=== PATIENT | female | born 1995 ===

== ENCOUNTER 2018-05-19 14:21 | Inpatient (IN) | payer MEDICAID, OTHER, SELFPAY ==
[~2018-05-19 14:21] MED LIST: Bupivacaine 0.25% HCL 30 ML VIAL ONE; Terbutaline Sulfate 1 MG/ML VIAL ONE
[2018-05-19] MEDS ORDERED: Lidocaine 1% (PF) 30 ML VIAL SC PRN (16:13)
[2018-05-19] MEDS ORDERED: Butorphanol Tartrate 1 MG/ML VIAL SLOW IVP PRN (16:13)
[2018-05-19] MEDS ORDERED: Promethazine HCl 25 MG/ML VIAL IM PRN ×2 (16:13→23:08)
[2018-05-19] MEDS ORDERED: HYDROcodone/Acetaminophen 5/325 mg Tablet PO PRN ×2 (16:13)
[2018-05-19] MEDS ORDERED: NS / Oxytocin 40 units/1000ml 1,000 ML IV PRN (16:13)
[2018-05-19] MEDS ORDERED: Ibuprofen 800 MG TAB PO PRN (16:13)
--- NOTE | 2018-05-19 16:26 | PDOC.FPROB ---
FMR OB H&P: HPI - History of Present Illness Chief Complaint: contractions and possible ROM Indentification: History of Present Illness: The patient is a 26YO @ 40.1 weeks by an 8.4 week sono who presented to L& D with a CC of contractions that began around 0700 this morning. The patient reports that she was laying in bed and started to feel contractions in her abdomen. She stated that the contractions becam more frequent to the point where they were 4-6 minutes apart so she decided to come to L&D for evaluation. She also noted some leakage of clear fluid and endorsed some back pain and urinary frequency. The patient endorses some associated fever as well but never took her temperature at home. She denies any vaginal bleeding, any large gush of fluid, or discharge. Also reports feeling regular movement. Lastly, the patient reports developing pain in her low back since laying down in the bed on L&D as well as a headache. She denies any N/V, blurry vision, or lower extremity swelling. Primary Care Physician: PNC FMR OB H&P: Current - Care : 1 Para: 0 Gestational age: 40.1 Due date: 05/18/18 Dating Criteria: 8.4 week sono Course/Complications: none - OB Labs Blood type: B RH: negative Antibody Screen: negative HIV: negative RPR: negative HepBsAg: negative Rubella: immune Gonorrhea: negative Chlamydia: negative Pap Smear: NILM on 10/16/17 1 hour gtt: 108 GBS: negative H&H: 12.5/35.9 on 02/22/18 Platelets: 236 on 02/22/18 - First Trimester Ultrasound First trimester: WNLs - Anatomy Survey Anatomy survey: Normal anatomy. Viable female fetus. EFW 369g. FMR OB H&P: History - Past Medical History PMH: none - OB History OB History: h/o chlamydia infection s/p azithromycin treated in October. Test of cure done in November and was negative. - Surgical History Sx History: none - Social History Social History: No EtOH, drug, or tobacco use. - Family History Family History: None FMR OB H&P: Medications - Current Home Medications: Medication Instructions Recorded Confirmed Type Pnv No.95/Ferrous Fum/Folic AC 1 tab PO DAILY 05/19/18 05/19/18 History [ Multivitamin Tablet] Allergies/Adverse Reactions: Allergies Allergy/AdvReac Type Severity Reaction Status Date / Time No Known Allergies Allergy Verified 05/19/18 16:32 FMR OB H&P: ROS - Review of Systems General: reports: fever/chills Eyes: denies: vision changes, double vision Cardiovascular: denies: chest pain, edema Respiratory: denies: shortness of breath Gastrointestinal: reports: abdominal pain. denies: nausea, vomiting Genitourinary (Female): reports: other (urinary frequency). denies: dysuria, vaginal pain, vaginal bleeding Musculoskeletal: reports: pain (in low back) FMR OB H&P: Vital Signs - Maternal Vital signs: BP: 105/72 HR: 86 temp: 98.7F - Heart Tones Baseline: 130 Variability: moderate Acceleration: present Deceleration: absent Category: category 1 [place] contractions every: 1-2 minutes FMR OB H&P: Physical Exam - Physical Exam General: NAD, awake, alert and oriented HEENT: normocephalic and atraumatic, MMM, grossly normal vision, grossly normal hearing Neck: supple, FROM Heart: RRR, normal S1/S2, no edema General: CTAB, no respiratory distress, good air movement, no rales/rhonchi, no wheezing Abdomen: gravid Musculoskeletal: FROM in all four extremities Neurological: cranial nerves II through XII intact, no focal deficit Skin: no rash, good tugor, capillary refill <2 seconds Lymphatic: no unusual bruising or bleeding, no purpura Psychiatric: intact recent and remote memory, good judgement and insight, normal mood and affect - Pelvic Exam Vulva: normal hair distribution, appropriate jean marie stage, no masses, no lesions Deviation from normal: thin white mucous-like discharge w/ pooling of clear vaginal fluid seen Cervix: no masses, no lesions Deviation from normal: scant amount of blood noted 2/2 trauma from speculum exam SVE: 1.5/80/-1 Fitzpatrick score: 9 FMR OB H&P: Results - Labs Lab results: Laboratory Tests 05/19/18 16:40 Urine Protein 300 H Urine Ketones 80 H Urine Blood Small H Urine Nitrite Negative Urine Bilirubin Negative Ur Leukocyte Esterase Trace H Urine RBC 21-50 H Urine WBC 0-3 Ur Squamous Epith Cells 11-20 H Urine Bacteria Rare-Few Other labs: Laboratory Tests 05/19/18 16:54 Amnio Swab Test RUPTURE DETECTED H FMR OB H&P: A/P - Problem List (1) First Current Visit: Yes Status: Acute Code(s): Z34.00 - ENCNTR FOR SUPRVSN OF NORMAL FIRST , UNSP TRIMESTER (2) History of maternal Chlamydia infection, currently in third trimester Current Visit: Yes Status: Acute Code(s): O09.293 - SUPRVSN OF PREG W POOR REPRODCTV OR OBSTET HX, THIRD TRI (3) Spontaneous rupture of amniotic membranes Current Visit: Yes Status: Acute Code(s): LLG5618 - Disposition: 26YO @ 40.1 weeks by 8.4 week sono who presented to L&D complaining of contractions who was found to have SROM at home via amnisure and sterile speculum exam. SROM: - Patient presented complaining of leaking of clear fluid that began early this morning around 0700. - Amnisure + & pooling noted on sterile speculum exam. - VP3 pending to r/o infection as potential source of rupture. - Estimated time since rupture ~10-11 hours. - Will therefore proceed with induction of labor as described below. term sIUP @ 40.1 weeks by 8.4 week sono: - Uncomplicated course. - SVE @ 15:20 significant for 1.5/80/-1. - Fitzpatrick score of 9 based on check and cervix noted to be midposition & soft. - Vertex position confirmed via sono. Category 1 tracing w/ baseline in 130s and moderate variability w/ accels noted on continuous monitoring. - Will start IVFs w/ LR @ 125mL/hr and start on pitocin for IOL since patient was also noted to be divina q1-2 minutes on continuous monitoring. - Will perform a repeat cervical check in ~4 hours. - GBS negative, no need for intrapartum abx. Proteinuria: - Protein level of 300 noted on cath UA obtained on presentation. BPs have been WNLs since presentation. - Will start on IVFs. No need for further labs at this point. Will continue to monitor BPs closely. h/o chlamydia in 1st trimester of : - Aware, s/p tx with azithromycin with negative confirmatory test 1 month later. Discussion: Date/Time: 05/19/18 6270 This H&P was discussed with Dr. Green and Dr. Saavedra who agree with the above documentation and plan. FACULTY: I have seen and examined the patient. Suspected SROM clinically and pos ...GBS neg. HX treated chlamydia this with neg SAMANTHA
--- NOTE | 2018-05-19 16:27 | PDOC.EVN ---
Event Note - Event Note Event Note: OBGYN Faculty: Snehal*Josue @ 6340 Aware of patient arrival I was first called at 1515 while I was in the ED with another patient. RN Report given to me 10 minutes ago In brief, this is a clinic patient who is a 23 yo G1 at 40 weeks 1 day with possible LOF. Per RN... with possible foul odor dsch vaginally. Also with urgency and dysuria. Suspicious for LOF vs vaginitis. CX ...possible forebag Residents are on the way to assess. She is afebrile with TMax 99.2. I have recommended: SSE Amnisure Needs VP3 Cath UA for dysuria and urgency admit for early labor as regular contractions
[2018-05-19 16:31] VITALS: BMI 28.7
[2018-05-19 16:57] LABS: Bilirubin Negative (Negative); Blood, Urine Small (Negative); Clarity CLEAR (Clear); Glucose, Urine (Dipstick) Negative (Negative); Leukocyte Trace (Negative); Nitrite Negative (Negative); Protein, Urine (Dipstick) 300 mg/dL (Neg-Trace); Specific Gravity, Urine 1.021 (1.002-1.036)
[2018-05-19] MEDS ORDERED: Ondansetron PF 4 MG/2 ML Vial IVP PRN ×2 (16:58→23:08)
[2018-05-19 17:00] LABS: RBC/HPF 21-50 HPF (0-3); WBC/HPF 0-3 HPF (0-3)
[2018-05-19 17:01] LABS: Pathc Cast-AUWi Flag 5.23 (0-2.49)
[2018-05-19 17:11] LABS: Bacteria/HPF Rare-Few HPF (None Seen); Hyaline Casts/LPF NONE SEEN LPF (0-3 Hyaline); Manual Microscopic Reviewed? No Path Casts Seen; Renal Epithelial None Seen HPF (0-3); Transitional Epithelial NONE SEEN HPF (0-3)
[2018-05-19 17:12] LABS: Amnisure Test RUPTURE DETECTED (No Rupture)
[2018-05-19 17:13] LABS: Amnisure Internal Control QC ACCEPTABLE (ACCEPTABLE)
[2018-05-19] MEDS: Lactated Ringer's 1,000 ML IV SCH ×3 (17:28→22:45)
--- NOTE | 2018-05-19 17:31 | PDOC.EVN ---
Event Note - Event Note Event Note: Amnisure positive
[2018-05-19] MEDS: NS w/ Oxytocin 10 units 500 ML IV SCH (18:10)
[2018-05-19 19:13] LABS: Hemoglobin 13.9 g/dL (12.0-16.0); Mean Corpuscular HGB CONC 34.1 g/dL (32.0-36.0); Mean Corpuscular Hemoglobin 30.6 pg (27.0-31.0); Mean Corpuscular Volume 89.9 fL (78.0-98.0); Mean Platelet Volume 7.2 fL (7.4-10.4); Platelet Count 258 thou/uL (130-400); RBC Distribution Width 11.8 % (11.5-14.5); Red Blood Cell (RBC) Count 4.53 mill/uL (4.20-5.40); White Blood Cell (WBC) Count 12.4 thou/uL (4.8-10.8)
[2018-05-19] MEDS ORDERED: Acetaminophen 325 MG TAB PO PRN ×2 (19:14→23:08)
[2018-05-19 19:50] LABS: Syphilis Antibody Nonreactive (Nonreactive); Syphilis Antibody Index 0.03 S/CO (<1.00 Non-Reactive)
[2018-05-19 19:54] LABS: HBSAg Index 0.21 S/CO (0-0.99); HIV (1/2) Antibody/Antigen Non-Reactive (NonReactive); HIV 1/2 INDEX 0.09 S/CO (<1.00); Hep B Surf Ag Non-Reactive S/CO (NonReactive)
[2018-05-19] MEDS: Misoprostol 100 MCG TAB VAG SCH ×2 (20:41→23:09)
--- NOTE | 2018-05-19 21:16 | PDOC.LDPN ---
Labor & Delivery Progress Note - Subjective Subjective: painful contractions, loss of fluid - Objective Vital signs reviewed and normal: yes General: resting Dilation: 4 Effacement: 75% Station: -1 FHT: category 2 (130/mod/+accel/variable decel) [place] contractions every: 2-4 AROM: clear fluid Plan: continue plan of care, pitocin for augmentation -: 26YO @ 40.1 weeks by 8.4 week sono who presented to L&D complaining of contractions who was found to have SROM at home via amnisure and sterile speculum exam. SROM: - Patient presented complaining of leaking of clear fluid that began early this morning around 0700. - Amnisure + & pooling noted on sterile speculum exam. - VP3 positive for gardnerella and vito - Estimated time since rupture ~14 hrs term sIUP @ 40.1 weeks by 8.4 week sono: - Uncomplicated course. - Vertex position confirmed via sono. - /-1 @ 20:25, on pitocin - Cat 2 for variable decel - GBS negative, no need for intrapartum abx. Proteinuria: - Protein level of 300 noted on cath UA obtained on presentation. BPs have been WNLs since presentation. h/o chlamydia in 1st trimester of : - Aware, s/p tx with azithromycin with negative confirmatory test 1 month later. Date/Time: 05/19/18 6317
[2018-05-19] MEDS ORDERED: Fentanyl 4 mcg/Bup 0.1% Cadd 100 ML ONE (22:44)
[2018-05-19] MEDS ORDERED: Lidocaine 1.5% w/Epi 1:200K 30 ML VIAL (Epid Use) ONE (22:45)
[2018-05-19] MEDS ORDERED: diphenhydrAMINE 50 MG/ML VIAL IVP PRN (23:08)
[2018-05-19] MEDS ORDERED: Naloxone HCl 0.4 mg/ml Vial IVP PRN ×2 (23:08)
[2018-05-19] MEDS ORDERED: ePHEDrine/0.9% NaCl/PF SYRINGE 50 mg/10 ml SLOW IVP PRN (23:08)
[2018-05-19] MEDS ORDERED: Eucerin (Mineral Oil/Petrolatum,White) 30 gm Jar TOP PRN (23:08)
[2018-05-19] MEDS ORDERED: Lactated Ringer's 500 ML IV PRN (23:08)
[2018-05-19] MEDS ORDERED: Fentanyl 4 mcg/Bupivacaine 0.1% Cassette 100 ML EPIDURAL SCH (23:15)
[2018-05-19] MEDS ORDERED: Communication Order-Pharmacy FS SCH (23:15)
[2018-05-19] MEDS ORDERED: Azithromycin 500 MG in Sodium Chloride 0.9% 250 ML 250 ML IVPB SCH (23:45)
--- NOTE | 2018-05-19 23:52 | PDOC.EVN ---
Event Note - Event Note Event Note: PREOP CS Note @3099: Please see my prior dictation regarding this patient's FHTs...I have reviewed the patient's strip from prior to her SHANAE, while on pitocin. There are recurrent variable decels moderate in severity. With this last episode of bradycardia (60s x 4-5 minutes), we have now noted moderate meconium. Patient is having changes to her position. I do not real comfortable restaring pitocin due to these FHR changes. I suspect there may be a nuchal cord. I have called a CS for persistent Class 2 FHR tracing with an episode of severe bradycardia. intolerance to labor at 4cm. I have notified anesthesia, and the residents are here as surgeons (Matt).
[2018-05-19] MEDS ORDERED: Bicitra 30 ML UDCUP ONE (23:53)
[2018-05-19] MEDS ORDERED: CEFAZOLIN 2 GM/50 ML BAG ONE (23:53)
[2018-05-19] MEDS ORDERED: Lidocaine 2% MPF 10 ML AMP (For Epidural Use) ONE (23:54)
[2018-05-19] MEDS ORDERED: ePHEDrine/0.9% NaCl/PF SYRINGE 50 mg/10 ml ONE (23:54)
[2018-05-19] MEDS ORDERED: Oxytocin 10 UNITS/ML VIAL ONE (23:54)
--- NOTE | 2018-05-20 00:21 | PRG ---
DATE OF SERVICE: 05/19/2018 TIME OF EVALUATION: 2330 hours. Heart Rate Deceleration. In brief, I was called for LDR1 for the baby, who had a severe episode of bradycardia down to the 60s for about 4 minutes. This was just after a labor epidural. The patient's blood pressure was checked and was one teens over 60s. We have stopped the Pitocin. We are doing IV fluid resuscitation, and we have given terbutaline 0.25 subcu x1. We are continuing to follow for now. I have also called a resident to come and evaluate. There is no evidence of cord prolapse. If the heart tracing shows persistent decelerations and/or recurrent late decels, unresponsive to IV fluid management, we will need to proceed with section. We have also notified Anesthesia of this finding. Currently, the heart tones are in the 150s, with moderate variability. I will have the residents and myself watch closely. Job ID: [id number]
[2018-05-20] MEDS ORDERED: Metoclopramide HCl 10 MG/2 ML VIAL ONE ×2 (00:35→13:05)
[2018-05-20] MEDS ORDERED: Ondansetron PF 4 MG/2 ML Vial ONE ×2 (00:35→13:05)
[2018-05-20] MEDS ORDERED: Oxytocin 10 UNITS/ML VIAL ONE ×2 (00:37)
[2018-05-20] MEDS ORDERED: Morphine PF 1 MG/ML SYR ONE (00:46)
[2018-05-20 00:55] LABS: Actual Bicarbonate (HCO3a) 20.2 mEq/L (22-28); Base Excess (BEa) -9.8 mEq/L (-2.0 to +3.0)
--- NOTE | 2018-05-20 01:06 | PDOC.EVN ---
Event Note - Event Note Event Note: Faculty: CS Note Please see Dr Rae/Margarita dictation Present and assisted with Primary LTCS. Ancef and Zmax given. NC x 1 (body cors) Gas 7.1 Apgars 6/8 Recommend Flagyl 500mg IV x 1 in RR as she had BV DX on admit
[2018-05-20] MEDS ORDERED: Promethazine HCl 25 MG/ML VIAL IM PRN (01:21)
[2018-05-20] MEDS ORDERED: Ondansetron PF 4 MG/2 ML Vial IVP PRN ×2 (01:21→03:34)
[2018-05-20] MEDS ORDERED: Naloxone HCl 0.4 mg/ml Vial IVP PRN ×2 (01:21)
[2018-05-20] MEDS ORDERED: HYDROmorphone 2 MG/ML VIAL SLOW IVP PRN (01:21)
[2018-05-20] MEDS ORDERED: Meperidine HCl/PF 25 MG/ML VIAL SLOW IVP PRN (01:21)
[2018-05-20] MEDS ORDERED: L&D-Morphine 4 MG/ML VIAL SLOW IVP PRN (01:21)
[2018-05-20] MEDS ORDERED: Hydrocerin (Eucerin) Cream 120 gm Jar TOP PRN (01:21)
[2018-05-20] MEDS ORDERED: diphenhydrAMINE 50 MG/ML VIAL IVP PRN (01:21)
[2018-05-20] MEDS ORDERED: Naloxone HCl 0.4 mg/ml Vial IV PRN (01:21)
[2018-05-20] MEDS ORDERED: Ondansetron HCl/PF 4 MG/2 ML Vial IVP PRN (01:21)
[2018-05-20] MEDS ORDERED: Promethazine HCl 25 MG SUPP PR PRN (01:21)
--- NOTE | 2018-05-20 01:28 | PDOC.OPDEL ---
OB Operative/Delivery Note Delivery Dr/Surgeon: Dr. Casandra Botello Assist: Dr. Luís Avila and Dr. Han Saavedra attending Pre-Delivery Diagnosis: non-reassuring tracing Procedure/Post Delivery Dx: primary low transverse CS Weeks gestation: 40 (40w2d) Anesthesia: epidural - Findings A Sex: female Weight: 3.006 kg - 1 min: 6 - 5 min: 8 - Additional Findings/Plan Placenta delivered: spontaneous findings: low transverse hysterotomy without extension Compilations/Other Findings: Preoperative Diagnosis: 1)Term intrauterine 2)Persistent category II FHT with variable decelerations and bradycardia, remote from delivery Postoperative Diagnosis: 1)Term intrauterine 2)Persistent category II FHT with variable decelerations and bradycardia, remote from delivery Anesthesia: spinal Indications: The patient is a 23 year old female at 40.2 weeks gestation who presents for SROM and had NRFHT with variable decelerations and bradycardia to the 60's, so a primary section was performed due to patient being remote from delivery. Procedure in Detail: After risks, benefits, and alternatives were explained to the patient, she gave informed consent. Pre-operative antibiotics included Cefazolin 2 gram IV and Azithromycin 500 mg IV. The patient had an epidural in place. The patient was taken to the operating room and was placed in the supine position with a left tilt. heart tones in the OR were in the 130's. She was prepped and draped in usual sterile fashion. A Pfannenstiel incision was made with a scalpel and carried down to the level of the fascia which was sharply nicked. The fascial cut was extended bilaterally with Chauhan scissors. The inferior and superior edges of the cut fascial edges were elevated with Elie clamps and the underlying rectus muscles were sharply and bluntly dissected free. The recti were divided digitally and retracted manually. The peritoneum was entered bluntly and retracted manually. An Jaguar-O retractor was placed for visualization of the uterus. A low transverse score was made with the scalpel and the uterus was entered in the midline bluntly. Meconium stained fluid was seen. The hysterotomy was extended manually in a cephalocaudal fashion. The infant was noted to be vertex and was easily delivered to the mid-abdomen by fundal pressure. A tight nuchal/body cord prevented delivery of the remainder of the body. The cord was clamped and cut at hysterotomy and then the remainder of the body was able to be easily delivered. Mouth and nares were bulb suctioned. Cord clamped and cut and grossly normal female was handed to waiting nurse. A cord gas sample was collected. Cord blood was obtained. Placenta was spontaneously delivered, found to be intact with 3 vessel cord and sent for pathology. The corners and bleeding edges of the hysterotomy were clamped with ring forceps and the endometrium was curetted with a dry lap. The uterus was closed with a running locking #1 Vicryl suture followed by a running non-locking #1 Vicryl imbricating suture. Following this hemostasis was noted. The abdomen was irrigated with saline and suctioned free of clots. The hysterotomy was again noted to be hemostatic. The rectus muscles were closed with running non-locking 2-0 Chromic suture. The rectus was inspected for bleeders and was found to be hemostatic. The fascia was closed with a running non-locking 0-PDS suture. The subcutaneous tissue was irrigated and there were a few small bleeders that were cauterized with the bovie. The subcutaneous tissue was approximated with interrupted 3-0 plain gut. The skin was approximated with matilde and a pressure dressing was placed. All counts were correct. The patient tolerated the procedure well and was taken to the recovery room in stable condition. Delivery time: 35 on 05/20/18 Quantitative Blood Loss: pending Complications: None Specimens: Cord blood sent to lab for blood type, placenta sent for pathology. Findings: Grossly normal female with apgars of 6 and 8 at 1 and 5 minutes respectively. Cord gas with pH 7.13 Drains: Murry to gravity draining clear urine Post delivery plan: routine recovery
[2018-05-20] MEDS ORDERED: Ketorolac Tromethamine 30 MG/ML VIAL IVP SCH (01:30)
[2018-05-20] MEDS ORDERED: Communication Order-Pharmacy FS SCH (01:30)
[2018-05-20] MEDS ORDERED: Ketorolac Tromethamine 30 MG/ML VIAL ONE (01:31)
[2018-05-20] MEDS: Ketorolac Tromethamine 30 MG/ML VIAL IVP PRN ×2 (01:35→14:08)
[2018-05-20] MEDS ORDERED: Meperidine HCl/PF 25 MG/ML VIAL ONE (02:14)
[2018-05-20] MEDS: Lactated Ringer's 1,000 ML IV SCH ×2 (02:17→09:16)
[2018-05-20] MEDS: Misoprostol 100 MCG TAB VAG SCH ×9 (02:56→23:52)
[2018-05-20] MEDS ORDERED: Acetaminophen 325 MG TAB PO PRN (03:34)
[2018-05-20] MEDS ORDERED: Lanolin Ointment 7 GM TUBE TOP PRN (03:34)
[2018-05-20] MEDS ORDERED: metroNIDAZOLE 500 MG in Premix Bag 1 BAG IVPB SCH (03:45)
--- NOTE | 2018-05-20 07:26 | PDOC.OBPPN ---
FMR OB PN: Subj - Interval History Hospital Day: 2 Day: 0 23 y/o ->1 delivered via pLTCS @ 0036 on 05/20/18. She reports some abdominal pain on the left side of her abdomen. Minimal lochia. Tolerating liquid diet. Has not ambulated or passed flatus yet. Denies F /C, N/V. She is breast feeding. FMR OB PN: Obj - Maternal Vital signs: BP: 98/55 HR: 95 RR: 18 Tmax: 97.9 Pox: 97% on RA Wt: 68.9 kg - Urine output I&O: 05/19/18 05/20/18 05/21/18 06:59 06:59 06:59 Intake Total 500 Output Total 350 Balance 150 - Lochia Lochia: Minimal - Pain Management Intervention: oral medication FMR OB PN: Exam - Physical Exam General: NAD, awake, alert and oriented HEENT: EOMI, MMM, grossly normal vision, grossly normal hearing Heart: RRR, normal S1/S2, no murmurs/rubs/gallops, pulses present, no edema General: CTAB, no respiratory distress, good air movement, no rales/rhonchi, no wheezing Abdomen: soft, gravid, fundus(cm) (1 cm below umbilicus), other (appropriately tender to palpation) Musculoskeletal: pulses present Neurological: cranial nerves II through XII intact, no focal deficit Skin: good tugor, capillary refill <2 seconds : bandage intact, no drainage, appropriately tender Lymphatic: no unusual bruising or bleeding Psychiatric: intact recent and remote memory, good judgement and insight FMR OB PN: Data - Labs Lab results: Laboratory Results - last 24 hr 05/19/18 05/19/18 05/19/18 16:40 16:54 19:01 WBC RBC Hgb Hct MCV MCH MCHC RDW Plt Count MPV Bicarbonate Actual ABG Base Excess Cord ABG pH Urine Color MATT Urine Clarity CLEAR Urine pH 8.0 Ur Specific [place] 1.021 Urine Protein 300 H Urine Glucose (UA) Negative Urine Ketones 80 H Urine Blood Small H Urine Nitrite Negative Urine Bilirubin Negative Urine Urobilinogen 1.0 Ur Leukocyte Esterase Trace H Urine RBC 21-50 H Urine WBC 0-3 Ur Squamous Epith Cells 11-20 H Ur Transition Epith Cell NONE SEEN Ur Renal Epithelial Cell None Seen Urine Bacteria Rare-Few Hyaline Casts NONE SEEN Amnio Swab Test RUPTURE DETECTED H Syphilis IgG/IgM Ab Hep Bs Antigen Non-Reactive HIV 1&2 Antigen & Ab Non-Reactive Blood Type Antibody Screen 05/19/18 05/19/18 05/19/18 19:01 19:01 19:01 WBC 12.4 H RBC 4.53 Hgb 13.9 Hct 40.8 MCV 89.9 MCH 30.6 MCHC 34.1 RDW 11.8 Plt Count 258 MPV 7.2 L Bicarbonate Actual ABG Base Excess Cord ABG pH Urine Color Urine Clarity Urine pH Ur Specific [place] Urine Protein Urine Glucose (UA) Urine Ketones Urine Blood Urine Nitrite Urine Bilirubin Urine Urobilinogen Ur Leukocyte Esterase Urine RBC Urine WBC Ur Squamous Epith Cells Ur Transition Epith Cell Ur Renal Epithelial Cell Urine Bacteria Hyaline Casts Amnio Swab Test Syphilis IgG/IgM Ab Nonreactive Hep Bs Antigen HIV 1&2 Antigen & Ab Blood Type B POSITIVE Antibody Screen NEGATIVE 05/20/18 00:52 WBC RBC Hgb Hct MCV MCH MCHC RDW Plt Count MPV Bicarbonate Actual 20.2 L ABG Base Excess -9.8 L Cord ABG pH 7.13 L* Urine Color Urine Clarity Urine pH Ur Specific [place] Urine Protein Urine Glucose (UA) Urine Ketones Urine Blood Urine Nitrite Urine Bilirubin Urine Urobilinogen Ur Leukocyte Esterase Urine RBC Urine WBC Ur Squamous Epith Cells Ur Transition Epith Cell Ur Renal Epithelial Cell Urine Bacteria Hyaline Casts Amnio Swab Test Syphilis IgG/IgM Ab Hep Bs Antigen HIV 1&2 Antigen & Ab Blood Type Antibody Screen FMR OB PN: A/P - Problem List (1) delivery delivered Current Visit: Yes Status: Acute Code(s): O82 - ENCOUNTER FOR DELIVERY WITHOUT INDICATION Assessment and Plan: Routine post- care -Encourage breast feeding, will consult marketing regional consultant for first baby -Encourage ambulation -Advance diet as tolerated -Continue PNV -Hemagram pending (2) Bacterial vaginosis Current Visit: Yes Status: Acute Code(s): N76.0 - ACUTE VAGINITIS; B96.89 - OTH BACTERIAL AGENTS THE CAUSE OF DISEASES CLASSD ELSWHR Assessment and Plan: Tested positive on admission. -s/p Flagyl 500mg Disposition: Monitor on post- for 48 hours post-op Discussion: Date/Time: 05/20/18724 This H&P was discussed with Dr. Saavedra who agrees with the above documentation and plan. Signature: Casandra Botello MD, PGY-2
[2018-05-20] MEDS ORDERED: Fluconazole 100 MG TAB PO SCH ×2 (08:30→09:00)
[2018-05-20] MEDS ORDERED: metroNIDAZOLE 500 MG TAB PO SCH ×2 (09:00)
[2018-05-20] MEDS ORDERED: Adacel (T-DAP) 0.5 ML SYRINGE IM ONE (09:00)
[2018-05-20] MEDS: Prenatal Vitamin 1 TAB PO SCH (09:16)
[2018-05-20] MEDS: Docusate Calcium (SURFAK) 240 MG CAP PO SCH ×2 (09:16→21:46)
[2018-05-20 09:47] LABS: Hemoglobin 11.8 g/dL (12.0-16.0); Mean Corpuscular HGB CONC 33.8 g/dL (32.0-36.0); Mean Corpuscular Hemoglobin 30.7 pg (27.0-31.0); Mean Corpuscular Volume 90.7 fL (78.0-98.0); Mean Platelet Volume 6.4 fL (7.4-10.4); Platelet Count 202 thou/uL (130-400); RBC Distribution Width 11.7 % (11.5-14.5); Red Blood Cell (RBC) Count 3.85 mill/uL (4.20-5.40); White Blood Cell (WBC) Count 15.3 thou/uL (4.8-10.8)
[2018-05-20] MEDS ORDERED: ePHEDrine/0.9% NaCl/PF SYRINGE 50 mg/10 ml ONE (13:05)
[2018-05-20] MEDS ORDERED: Lidocaine 2% MPF 10 ML AMP (For Epidural Use) ONE (13:05)
[2018-05-20] MEDS: HYDROcodone/Acetaminophen 5/325 mg Tablet PO PRN ×2 (16:23→21:47)
[2018-05-20] MEDS: NS w/ Oxytocin 10 units 500 ML IV SCH (18:50)
[2018-05-20] MEDS ORDERED: metroNIDAZOLE 0.75% 70 GM TUBE VAG SCH ×2 (21:00→22:30)
[2018-05-20] MEDS: Ibuprofen 800 MG TAB PO SCH (21:46)
[2018-05-20] MEDS: Simethicone Chewable 80 MG TAB PO PRN (21:46)
[2018-05-20] MEDS: metroNIDAZOLE 0.75% 70 GM TUBE VAG SCH (22:34)
--- NOTE | 2018-05-21 00:59 | PDOC.PP ---
Post Progress Note Post Day #: POD#1 Subjective: Resting. No c/o. PO intake tolerated: yes Flatus: no Ambulation: yes Vital Signs (12 hours) Temp Pulse Resp BP Pulse Ox 05/20/18 20:15 98.3 F 93 16 107/56 L 96 05/20/18 19:45 96 05/20/18 17:10 98.4 F 80 18 107/58 L 96 Weight Weight 68.946 kg - Physical Examination General: NAD Respiratory: non-labored breathing Abdominal: no distention Skin: CS incision dry & intact Psychiatric: normal affect Result Diagrams: 05/20/18 09:34 Additional Labs: Post Labs Blood Type B POSITIVE 05/19/18 19:01 Hep Bs Antigen Non-Reactive S/CO (NonReactive) 05/19/18 19:01 - Assessment/Plan Doing well. Advance diet. Ambulate hallway.
[2018-05-21] MEDS: HYDROcodone/Acetaminophen 5/325 mg Tablet PO PRN ×4 (02:09→19:01)
[2018-05-21] MEDS: Misoprostol 100 MCG TAB VAG SCH ×2 (05:29→09:48)
[2018-05-21] MEDS: Simethicone Chewable 80 MG TAB PO PRN ×3 (06:16→21:33)
[2018-05-21] MEDS: Ibuprofen 800 MG TAB PO SCH ×3 (06:17→21:33)
[2018-05-21] MEDS: Lactated Ringer's 1,000 ML IV SCH (09:48)
[2018-05-21] MEDS: Docusate Calcium (SURFAK) 240 MG CAP PO SCH ×2 (09:50→21:33)
[2018-05-21] MEDS: Prenatal Vitamin 1 TAB PO SCH (09:50)
--- NOTE | 2018-05-21 11:07 | PDOC.OBPPN ---
FMR OB PN: Subj - Interval History Hospital Day: 3 Day: 1 23 y/o ->1 delivered via pLTCS @ 0036 on 05/20/18. She reports some mild abdominal pain that is improved with oral pain meds. She reports some gas pain. Minimal lochia. Tolerating regular diet. Ambulating without difficulty. Endorses flatus. Denies F/C, N/V. She is breast feeding and having some difficulty with the latching. FMR OB PN: Obj - Maternal Vital signs: BP: 95/54 HR: 83 RR: 20 Tmax: 98.3 Pox: 95% on RA Wt: 70 kg - Urine output I&O: 05/20/18 05/21/18 05/22/18 06:59 06:59 06:59 Intake Total 500 2300 Output Total 350 1900 Balance 150 400 - Lochia Lochia: Trace FMR OB PN: Exam - Physical Exam General: NAD, awake, alert and oriented HEENT: MMM, conjunctiva clear, grossly normal vision, grossly normal hearing Neck: supple, FROM Heart: RRR, normal S1/S2, no murmurs/rubs/gallops, pulses present, no edema General: CTAB, no respiratory distress, good air movement, no rales/rhonchi, no wheezing Abdomen: soft, fundus(cm) (firm 2 cm below umbilicus), bowel sound present, other (appropriately tender over uterine fundus) Neurological: no focal deficit Skin: good tugor, capillary refill <2 seconds : incision healing well, no erythema, no drainage, appropriately tender Lymphatic: no unusual bruising or bleeding, no purpura Psychiatric: intact recent and remote memory, good judgement and insight, normal mood and affect FMR OB PN: A/P - Problem List (1) delivery delivered Status: Acute Code(s): O82 - ENCOUNTER FOR DELIVERY WITHOUT INDICATION Assessment and Plan: Routine post- care -Encourage breast feeding, consulted to return again today -Encourage ambulation -Continue PNV -Pain control with ibuprofen and norco -Hemagram with Hb 11.8 (2) Bacterial vaginosis Status: Acute Code(s): N76.0 - ACUTE VAGINITIS; B96.89 - OTH BACTERIAL AGENTS THE CAUSE OF DISEASES CLASSD ELSWHR Assessment and Plan: Given flagyl Disposition: Anticipate d/c home tomorrow Discussion: Date/Time: 05/21/18 5331 This H&P was discussed with Dr. Robbins who agrees with the above documentation and plan. Signature: Casandra Botello MD, PGY-2 Addendum - Attending - Attending Attestation Date/Time: 05/24/18 3258 I personally evaluated the patient and discussed the management with Dr. Botello. I agree with the Assessment and Plan documented above.
[2018-05-21] MEDS: metroNIDAZOLE 0.75% 70 GM TUBE VAG SCH (22:42)
[2018-05-22] MEDS: HYDROcodone/Acetaminophen 5/325 mg Tablet PO PRN ×4 (02:12→20:59)
[2018-05-22] MEDS: Ibuprofen 800 MG TAB PO SCH ×3 (05:57→21:38)
--- NOTE | 2018-05-22 07:25 | PDOC.OBPPN ---
FMR OB PN: Subj - Interval History Day: [age] y/o ->1 delivered via pLTCS @ 0036 on 05/20/18. She reports some abdominal pain that is worse than the day prior and is only partially improved with oral pain meds. Minimal lochia. Tolerating regular diet. Ambulating without difficulty. Endorses flatus. Denies F/C, N/V. She is breast feeding. FMR OB PN: Obj - Maternal Vital signs: BP: 107/58 HR: 74 RR: 18 Tmax: 97.6 Pox: 97% on RA Wt: 68.9 kg - Urine output I&O: 05/21/18 05/22/18 05/23/18 06:59 06:59 06:59 Intake Total 2300 1000 Output Total 1900 Balance 400 1000 - Lochia Lochia: Trace FMR OB PN: Exam - Physical Exam General: NAD, awake, alert and oriented HEENT: EOMI, MMM, conjunctiva clear, grossly normal vision, grossly normal hearing Heart: RRR, normal S1/S2, no murmurs/rubs/gallops, pulses present, no edema General: CTAB, no respiratory distress, good air movement, no rales/rhonchi, no wheezing Abdomen: soft, fundus(cm) (firm 3 cm below the umbilicus), bowel sound present, other (TTP over uterine fundus) Musculoskeletal: pulses present Skin: good tugor, capillary refill <2 seconds : incision healing well, no erythema, no drainage, appropriately tender Psychiatric: intact recent and remote memory, good judgement and insight FMR OB PN: A/P - Problem List (1) delivery delivered Status: Acute Code(s): O82 - ENCOUNTER FOR DELIVERY WITHOUT INDICATION Assessment and Plan: Routine post- care -Encourage breast feeding -Encourage ambulation -Continue PNV -Pain control with ibuprofen and norco. Pt asking for norco every 4-10 hours. She is aware she can ask for it every 4 hours -Simethicone prn gas pain -Hemagram with Hb 11.8 (2) Bacterial vaginosis Status: Acute Code(s): N76.0 - ACUTE VAGINITIS; B96.89 - OTH BACTERIAL AGENTS THE CAUSE OF DISEASES CLASSD ELSWHR Assessment and Plan: Treated with flagyl Disposition: Likely d/c home tomorrow, would like to see better pain control. Discussion: Date/Time: 05/22/1809 This H&P was discussed with Dr. Galicia who agrees with the above documentation and plan. Addendum - Attending - Attending Attestation Date/Time: 05/24/18 0041 I personally evaluated the patient and discussed the management with Dr. Botello I agree with the History, Examination, Assessment and Plan documented above with any addition or exceptions noted below.
[2018-05-22] MEDS: Prenatal Vitamin 1 TAB PO SCH (09:35)
[2018-05-22] MEDS: Docusate Calcium (SURFAK) 240 MG CAP PO SCH ×2 (09:35→21:38)
[2018-05-22 21:07] VITALS: TEMP 98.5
[2018-05-22] MEDS: metroNIDAZOLE 0.75% 70 GM TUBE VAG SCH (21:39)
[2018-05-23] MEDS: HYDROcodone/Acetaminophen 5/325 mg Tablet PO PRN ×2 (04:13→16:53)
[2018-05-23] MEDS: Ibuprofen 800 MG TAB PO SCH ×2 (05:38→14:30)
--- NOTE | 2018-05-23 07:40 | PDOC.OBPPN ---
FMR OB PN: Subj - Interval History Day: [age] y/o ->1 delivered via pLTCS @ 0036 on 05/20/18. She reports that her abdominal pain has improved and is controlled on norco and ibuprofen. Minimal lochia. Tolerating regular diet. Ambulating without difficulty. Endorses flatus, denies BM. Denies F/C, N/V. She is breast feeding, but is also having to breast pump due to not being able to express milk yet. FMR OB PN: Obj - Maternal Vital signs: BP: 110/70 HR: 84 RR: 18 Tmax: 98.5 Pox: 98% on RA - Urine output I&O: 05/22/18 05/23/18 05/24/18 06:59 06:59 06:59 Intake Total 1000 700 Balance 1000 700 - Lochia Lochia: Trace FMR OB PN: Exam - Physical Exam General: NAD, awake, alert and oriented HEENT: MMM, conjunctiva clear, grossly normal vision, grossly normal hearing Heart: RRR, normal S1/S2, no murmurs/rubs/gallops, pulses present, no edema General: CTAB, no respiratory distress, good air movement, no rales/rhonchi, no wheezing Abdomen: soft, fundus(cm) (3cm below umbilicus), other (appropriately TTP over uterine fundus) Musculoskeletal: pulses present Skin: good tugor, capillary refill <2 seconds : incision healing well (clean/dry/intact), no erythema, no drainage, appropriately tender Psychiatric: intact recent and remote memory, good judgement and insight FMR OB PN: A/P - Problem List (1) delivery delivered Current Visit: Yes Status: Acute Code(s): O82 - ENCOUNTER FOR DELIVERY WITHOUT INDICATION Assessment and Plan: Routine post- care -Encourage breast feeding and pumping -Cont PNV -Encourage ambulation -Pain control with ibuprofen and norco. Pt asking for norco every 4-10 hours. -Simethicone prn gas pain -Hemagram with Hb 11.8 (2) Bacterial vaginosis Current Visit: Yes Status: Acute Code(s): N76.0 - ACUTE VAGINITIS; B96.89 - OTH BACTERIAL AGENTS THE CAUSE OF DISEASES CLASSD ELSWHR Assessment and Plan: -Flagyl Disposition: d/c home today with norco prn, ibuprofen, PNV. f/u in 2 days for staple removal Discussion: Date/Time: 05/23/18738 This H&P was discussed with Dr. Ruano who agrees with the above documentation and plan. Signature: Casandra Botello MD, PGY-2
[2018-05-23 08:58] VITALS: BP 99/55
[2018-05-23] MEDS: Docusate Calcium (SURFAK) 240 MG CAP PO SCH (09:15)
[2018-05-23] MEDS: Prenatal Vitamin 1 TAB PO SCH (09:15)
== END 2018-05-23 17:40 | disposition home or self-care (01) | DRG 786 ==
LOC: L&D/OP 14:21 → L&D 17:10 → 3SW 05-20 03:51
PROVIDERS: ADMIT Obstetrics & Gynecology; ATTEND Obstetrics & Gynecology
PROC: 10907ZC Drainage of Amniotic Fluid, Therapeutic from Products of Conception, Via Natural or Artificial Opening (ICD-10-PCS; principal; 2018-05-19)
PROC: 10D00Z1 Extraction of Products of Conception, Low, Open Approach (ICD-10-PCS; 2018-05-19)
DX: O48.0 Post-term pregnancy (principal); O75.3 Other infection during labor; Z3A.40 40 weeks gestation of pregnancy; Z37.0 Single live birth; O69.1XX0 Labor and delivery complicated by cord around neck, with compression, not applicable or unspecified; O76 Abnormality in fetal heart rate and rhythm complicating labor and delivery; O12.14 Gestational proteinuria, complicating childbirth; B96.89 Other specified bacterial agents as the cause of diseases classified elsewhere
CPT/HCPCS: 36415; 51702; 81003; 81015; 82805; 84112; 85027; 86780; 86850; 86900; 86901; 87340; 87389; 87480; 87510; 87660; 88307; 99285; A4353; J0456; J0595; J1885; J2001; J2175; J2274; J2405; J2590; J2765; J3105; J7050; S0020